=== PATIENT | female | born 1960 | race African-American/Black ===

== ENCOUNTER 2018-04-18 21:31 | Emergency (ER) | payer BC ==
[~2018-04-18] VITALS: Ht 172.7 cm; Wt 72.6 kg
[~2018-04-18 21:31] MED LIST: DOXYCYCLINE MO100 MG ORAL; IBUPROFEN600 MG ORAL; MUPIROCIN22 GM TOPIC
[2018-04-18 21:45] VITALS: BP 134/68
[2018-04-18] MEDS ORDERED: NORCO 5-325 TA1 EACH ORAL (21:47)
[2018-04-18] MEDS ORDERED: HYDROCODON-ACE1 EA13 ORAL (21:47)
[2018-04-18] MEDS ORDERED: CEPHALEXIN500 M1 ORAL (21:47)
[2018-04-18] MEDS ORDERED: RIZATRIPTAN10 M1 PO (21:47)
[2018-04-18] MEDS ORDERED: Metoclopramide 10mg/2ml Inj IVP ONE (22:30)
[2018-04-18] MEDS ORDERED: DiphenhydrAMINE 50mg/ml Inj IVP ONE (22:30)
[2018-04-18] MEDS ORDERED: Ketorolac 30mg Inj IV ONE (22:30)
[2018-04-18] MEDS ORDERED: ZOFRAN4 MG ORAL (23:35)
[2018-04-18 23:53] VITALS: BP 134/68
--- NOTE | 2018-04-19 03:24 | Emergency Room Report ---
History of Present Illness General Chief Complaint: Vomiting Source: Patient Present Illness HPI Patient 57-year-old female presented after increased headache and vomiting after the recent surgery. Patient prior history of migraine headaches. She had taken rizatriptan without any improvement. Patient had the surgery 1 day prior to arrival for a podiatry repair to the left foot Allergies: Uncoded Allergies: CHOCOLATE (Allergy, Unknown, 06/16/15) Patient History Past Medical History: see triage record Last Menstrual Period: 7 years ago Now: No Reviewed Nursing Documentation: PMH: Agreed; PSxH: Agreed Nursing Documentation-PMH Past Medical History: No Stated History Review of Systems All Other Systems: negative except mentioned in HPI Physical Exam Vital Signs Date Time Temp Pulse Resp B/P (MAP) Pulse Ox O2 Delivery O2 Flow Rate FiO2 04/18/18 21:40 98.1 88 16 134/68 98 Room Air General Appearance: well appearing, no apparent distress, alert, GCS 15 Head: normocephalic, atraumatic ENT: hearing grossly normal, normal voice Neck: full range of motion, supple Respiratory: no respiratory distress, speaking full sentences Cardiovascular #1: normal inspection Gastrointestinal: normal inspection Musculoskeletal: normal inspection Neurologic: normal inspection, alert, oriented x3, responsive, other - gait not tested Psychiatric: mood/affect normal Skin: no rash Medical Decision Making Diagnostic Impression: Primary Impression: Nausea and vomiting after administration of anesthetic agent ER Course The patient presented for headache and vomiting. Differential diagnoses included was not limited to anesthetic reaction, migraine headache, gastroenteritis among others. Patient has a benign exam and does not appear to require any further imaging or laboratory testing at this time. Patient given medications symptomatically treatment. Patient reported having a marked improvement and stated she felt better want to leave. She didn't symptoms are likely related to recent anesthesia. The patient is advised to recheck with her primary care physician in the next few days.Patient is to return if she began having worsening symptoms or other concerns Last Vital Signs Date Time Temp Pulse Resp B/P (MAP) Pulse Ox O2 Delivery O2 Flow Rate FiO2 04/18/18 23:53 98.1 88 16 134/68 98 Room Air Status: improved Disposition: HOME, SELF-CARE Condition: Stable Scripts Ondansetron (Zofran) 4 Mg Tablet 4 MG ORAL Q6H PRN for Nausea & Vomiting, #30 TAB 0 Refills Prov: Arnoldo Bell MD 04/18/18 Referrals: NON PHYSICIAN (PCP) Patient Instructions: Nausea and Vomiting, Adult Arnoldo Bell MD Apr 19, 2018 03:24
== END 2018-04-18 23:45 | disposition home or self-care (01) ==
LOC: EMR 22:25
DX: R51 Headache (principal); R11.2 Nausea with vomiting, unspecified
CPT/HCPCS: 96374; 96375; 99284; J1200; J1885; J2765